=== PATIENT | male | born 2000 | race Caucasian/White ===

== ENCOUNTER 2020-10-29 22:38 | Emergency (ER) | payer OTHER, SELFPAY ==
[2020-10-29 22:39] VITALS: BP 108/79; PULSE 84; RESP 20; TEMP 36.3; O2SAT 99; BMI 22.2
--- NOTE | 2020-10-30 | EDS_ITS ---
HPI History of Present Illness Chief Complaint: Chest Other Narrative Narrative: Patient is a 19-year-old male who states roughly 2 hours ago he was running in a race. He states that he tripped and fell landed in a concrete hole. He states he landed majority with the weight on his chest. He denies striking his head or any loss of consciousness or blood thinner use. He states that he has had pain to the midsternal region that is worse with inspiration since that time. He has concern he may have broken a sternum or even damaged his lungs and therefore comes in for evaluation [facility] Allergy/AdvReac Type Severity Reaction Status Date / Time No Known Allergies Allergy Verified 10/29/20 22:42 Social History Smoking Status: Never smoker ROS ROS ED Constitutional Constitutional ED: Denies chills or fever(s) ENT ENT ED: Denies sore throat Cardiovascular Cardiovascular: Reports chest pain Respiratory/Chest Respiratory/Chest: Denies cough or dyspnea Gastrointestinal Gastrointestinal: Denies abdominal pain, diarrhea, nausea or vomiting Genitourinary Genitourinary ED: Denies dysuria Musculoskeletal Musculoskeletal: Denies myalgias Integumentary Denies rash Neurologic Neurologic: Denies headache(s) Hematologic/Lymphatic Hematologic/Lymphatic: Denies easy bleeding or easy bruising EXAM Physical Exam Const Vital Signs: 10/29/20 22:39 Temperature 97.3 F L Temperature Source Temporal Pulse Rate 84 Respiratory Rate 20 H Blood Pressure 108/79 Blood Pressure Mean 88 Pulse Ox 99 Oxygen Delivery Method Room Air Positive well nourished and well developed General Appearance ED: well developed HEENT Reports moist mucous membranes normocephalic and atraumatic Eyes PERRL and EOMs intact bilaterally Neck supple Chest Wall Chest Narrative: There is no obvious bony deformity or crepitance of the chest wall. There is mild pain palpation over top the anterior chest wall main the sternum. No overlying abrasions or ecchymosis noted Resp normal respiratory effort and clear to auscultation bilaterally Cardio regular rate and regular rhythm GI normal to inspection, nondistended, normoactive bowel sounds, soft to palpation, non-tender and non-distended Auscultation: normoactive bowel sounds Palpation: soft Back/Spine Back/Spine Narrative: No bony deformity or step-off of the thoracic or lumbar spine no midline pain with palpation Extremity normal to inspection Neuro oriented x3 and CN's II-XII intact bilaterally Sensorium / Orientation: awake and alert Psych mental status grossly normal Skin no rashes or lesions noted MDM MDM MDM Narrative Medical decision making narrative: Patient to the ER with a mechanical fall therefore there is no need for cardiac or syncope work-up. He had no signs of trauma to his head or neck so also felt no need for CT scan. As his chest pain is musculoskeletal I did elect to perform a chest x-ray to rule out sternal fracture rib fracture or pneumothorax. Imaging studies revealed no acute finding. Therefore patient is a sternal contusion and is safe for discharge Radiography Diagnostic Testing: Radiology Impression Chest X-Ray 10/30/20 00:00 IMPRESSION: Normal x-ray examination of the chest. Electronically Signed: Roxann Cash MD at 1:19 EDT , Service support , Discharge Plan Triage Chief Complaint: Chest Other ED Provider: Milad House Dx/Rx/DC Orders Clinical Impression: Chest wall contusion Instructions: ED Chest Wall Contusion Referrals: OMAR HANSON [Other] Disposition Disposition: Home, Self Care
--- NOTE | 2020-10-30 | RAD_ITS ---
STUDY: X-RAY CHEST REASON FOR EXAM: Male, 19 years old. injury TECHNIQUE: PA and lateral views of the chest. COMPARISON: None. FINDINGS: The lungs are clear and expanded. There is no demonstrated pleural abnormality. Normal size heart. Normal mediastinum and kusum. Normal visualized pulmonary arteries. Normal visualized aortic arch and descending thoracic aorta. Normal visualized thoracic spine. Normal visualized ribs, clavicles, and shoulders. There is no demonstrated abnormality of the visualized soft tissue structures of the upper abdomen. RAD/Chest PA and Lateral IMPRESSION: Normal x-ray examination of the chest. Electronically Signed: Roxann Cash MD at 1:19 EDT , Service support ,
[2020-10-30 01:44] VITALS: PULSE 73; RESP 16; O2SAT 99
--- NOTE | 2020-10-30 01:45 | ED.RN ---
THIS NURSE REVIEWED D/C INSTRUCTIONS WITH PT. PT VERBALIZED UNDERSTANDING OF INSTRUCTIONS. PT DENIES FURTHER NEEDS OR QUESTIONS AT THIS TIME
== END 2020-10-30 01:45 | disposition home or self-care (01) ==
PROVIDERS: Emergency Provider Emergency Medicine
DX: S20.219A Contusion of unspecified front wall of thorax, initial encounter (principal); W01.0XXA Fall on same level from slipping, tripping and stumbling without subsequent striking against object, initial encounter; Y93.02 Activity, running; Y92.488 Other paved roadways as the place of occurrence of the external cause; Y99.8 Other external cause status
CPT/HCPCS: 71046; 99284

== ENCOUNTER 2024-05-23 16:35 | Emergency (ER) | payer BC, SELFPAY ==
[2024-05-23 16:36] VITALS: BP 125/86; PULSE 72; RESP 15; TEMP 36.6; O2SAT 98; BMI 22.3
--- NOTE | 2024-05-23 16:59 | EX.ED.UPPERE ---
HPI <JEREMIAS Piña - Last Filed: 05/23/24 18:45> History of Present Illness Chief Complaint: Laceration Narrative Narrative: Patient presenting today with a laceration to the left third finger that occurred while he was pole vaulting and the pole broke cutting the dorsal aspect of his left third finger. He is right-handed. His tetanus is up-to-date. He denies any other injury. PFSH <JEREMIAS Piña - Last Filed: 05/23/24 18:45> PFSH Allergy/AdvReac Type Severity Reaction Status Date / Time No Known Allergies Allergy Verified 05/23/24 16:38 Social History Smoking Status: Never smoker ROS <JEREMIAS Piña Last Filed: 05/23/24 18:45> ROS ED Constitutional Constitutional ED: Denies chills or fever(s) Cardiovascular Cardiovascular: Denies chest pain Respiratory/Chest Respiratory/Chest: Denies dyspnea Musculoskeletal Musculoskeletal: Reports arthralgias Integumentary Reports laceration Neurologic Neurologic: Denies paresthesias EXAM <JEREMIAS Piña - Last Filed: 05/23/24 18:45> Physical Exam Const Vital Signs: 05/23/24 16:36 Temperature 97.8 F Temperature Source Temporal Pulse Rate 72 Respiratory Rate 15 Blood Pressure 125/86 H Blood Pressure Mean 99 Pulse Ox 98 Oxygen Delivery Method Room Air Positive well nourished, well developed and no apparent distress General Appearance ED: well developed HEENT Reports normocephalic and head/scalp atraumatic Mouth ED: Yes moist mucous membranes normal Eyes PERRL and EOMs intact bilaterally Neck full ROM and supple Chest Wall inspection of chest normal Resp normal respiratory effort and clear to auscultation bilaterally Cardio regular rate and regular rhythm Back/Spine normal ROM and normal to inspection Extremity normal to inspection and full ROM Extremity Narrative: 1 cm linear full-thickness laceration to the dorsal aspect of the left third PIP joint. Full flexion/ extension at the MCP, PIP, DIP joints of the left hand. Left radial pulse 2+, good cap refill, sensation intact. Neuro oriented x3, CN's II-XII intact bilaterally, moves all extremities, no focal motor deficits and no sensory deficits noted Sensorium / Orientation: awake and alert Psych mental status grossly normal and thought process normal Skin Skin Narrative: Aside from laceration to left third finger no other rashes or lesions noted. [facility] <JEREMIAS Piña - Last Filed: 05/23/24 18:45> [facility] Narrative Medical decision making narrative: Patient presenting today with a laceration to the left third finger that he got today while pole vaulting. While he was up in the air the pole broke and cut his finger. He reports pain to the left third finger, otherwise no other injury. He is neurovascularly intact. No tendon laceration. He has a 1 cm linear laceration to the dorsal aspect of his left third finger at the PIP joint that will require suture repair. X-ray obtained to assess for fracture/foreign body and is negative. He tolerated procedure well. He was placed in a finger splint. Recommended he have sutures removed in 7 day by his PCP. Wound care instructions were discussed, patient discharged home in stable condition. <Garrick Childress MD - Last Filed: 05/23/24 23:47> [facility] Treatment and Re-Evaluation Narrative: Dr. Childress: I have personally performed a face to face assessment of the patient and have reviewed the BOB Note. I performed a substantive portion of the visit including all aspects of the following. My [place] findings include: History is laceration to left middle finger, dorsum, just on her distal to PIP after pulled while taking and vaulting pole broke. No other injury. Exam is GCS 15. ABCs intact. Inspection of dorsum of left hand shows laceration at and just distal to left PIP joint without active bleeding. 1 cm in length. Medical Decision Making: Check x-rays for open fracture. Laceration repair. Splint to prevent wound dehiscence or breaking of sutures. Discharge. Other additions or changes: [None] Procedures <JEREMIAS Piña - Last Filed: 05/23/24 18:45> Lacerations Laceration: Length: 0.39 in Depth: Sub Q Shape: Linear Prep: Chlorhexadine Laceration repair: Digital block, Irrigated, Lidocaine and Wound explored Number of Sutures/Duglas: 2 Suture Information: Ethilon, Horizontal, Mattress and 4-0 Discharge Plan Triage Chief Complaint: Laceration ED Midlevel Provider: hCanda Jackson ED Provider: Garrick Childress Dx/Rx/DC Orders Clinical Impression: Finger laceration Instructions: ED Laceration Extremity Primary Care Provider: Care Physician,No Primary Referrals: OMAR HANSON [Other] Activity Restrictions/Additional Instructions: Follow-up with your PCP to have sutures removed in 7 days. Keep area clean and return for any signs of infection. Print Language: Albanian Disposition Disposition: Home, Self Care Discharge Date/Time: 05/23/24 17:57
--- NOTE | 2024-05-23 17:05 | RAD_ITS ---
PROCEDURE: FINGER(S) MIN 2 VIEWS 05/23/2024 REASON FOR EXAM: LACERATION 3RD FINGER, INJURY TECHNIQUE: 3 view(s) of the left 3rd digit COMPARISON: None FINDINGS: Bones: No acute fracture. Joints: Normal alignment. Soft tissues: Soft tissues are unremarkable. Other: RAD/Finger(s) Min 2 Views IMPRESSION: NO ACUTE FRACTURE OR DISLOCATION. Reading Location: [facility]
[2024-05-23] MEDS: Lidocaine 1% (20 ml mdv) 20 ML Vial 10 ML INFILT (17:42)
== END 2024-05-23 17:57 | disposition home or self-care (01) ==
PROVIDERS: Emergency Provider Emergency Medicine; Visit Provider Emergency Medicine
DX: S61.213A Laceration without foreign body of left middle finger without damage to nail, initial encounter (principal); W26.8XXA Contact with other sharp object(s), not elsewhere classified, initial encounter
CPT/HCPCS: 12001; 73140; 99283

== ENCOUNTER 2024-05-30 13:52 | Emergency (ER) | payer BC, SELFPAY ==
[2024-05-30 13:53] VITALS: BP 112/77; PULSE 61; RESP 14; TEMP 36.1; O2SAT 98; BMI 23.3
--- NOTE | 2024-05-30 14:15 | EDS_ITS ---
HPI History of Present Illness Chief Complaint: Suture Remv Informant: patient Narrative Narrative: 23-year-old male presenting to the emergency room with suture removal. Patient stained a laceration to his dorsum of the left middle finger about 7 days ago when his whole broke doing the pole vault. Patient states the finger has been healing well and he has no concerns. He presents to have the sutures removed PFSH PFSH Allergy/AdvReac Type Severity Reaction Status Date / Time No Known Allergies Allergy Verified 05/23/24 16:38 Social History Smoking Status: Never smoker ROS ROS ED Constitutional Constitutional ED: Denies chills or weight loss Eyes Eyes: Denies change in vision or diplopia ENT ENT ED: Denies ear pain, rhinorrhea or sore throat Cardiovascular Cardiovascular: Denies chest pain, orthopnea, palpitations or racing heartbeat Respiratory/Chest Respiratory/Chest: Denies cough, dyspnea or orthopnea Gastrointestinal Gastrointestinal: Denies abdominal pain, diarrhea, nausea or vomiting Genitourinary Genitourinary ED: Denies dysuria, hematuria or urinary frequency Musculoskeletal Musculoskeletal: Denies arthralgias or myalgias Integumentary Reports other Details: See history of present illness ; Denies abscess or rash Neurologic Neurologic: Denies headache(s) or weakness Psychiatric Psychiatric: Denies anxiety, depression, suicidal ideation or suicidal thoughts Endocrine Endocrinology: Denies polydipsia, polyphagia or polyuria Allergic/Immunologic Allergic/Immunologic ED: Denies mouth swelling, tongue swelling or urticaria EXAM Physical Exam Const Vital Signs: 05/30/24 13:53 Temperature 97 F L Temperature Source Temporal Pulse Rate 61 Respiratory Rate 14 Blood Pressure 112/77 Blood Pressure Mean 88 Pulse Ox 98 Oxygen Delivery Method Room Air Positive well nourished and well developed General Appearance ED: well developed HEENT Reports normocephalic, head/scalp atraumatic and moist mucous membranes Eyes PERRL and EOMs intact bilaterally Neck no lymphadenopathy, supple and no JVD Resp normal respiratory effort and clear to auscultation bilaterally Cardio regular rate, regular rhythm and no murmurs GI normal to inspection, nondistended, normoactive bowel sounds and non-tender Palpation: soft Back/Spine no CVA tenderness and normal ROM Extremity Extremity Narrative: There is a healing laceration over the dorsum of the left third finger PIP joint. I do not see any obvious signs of infection. Wound edges appear well- approximated and healing. General Extremety ED: Negative for edema General Extremity: Negative for edema Neuro oriented x3 and CN's II-XII intact bilaterally Sensorium / Orientation: alert Motor Exam: strength 5/5 throughout Psych mental status grossly normal Mood & Affect: Negative for depressed or tearful Skin no rashes or lesions noted and no wounds MDM MDM MDM Narrative Medical decision making narrative: Differential diagnosis includes but not limited to healing laceration infected sutures cellulitis Sutures were removed x 2. Local wound care discussed with patient. To continue to use some Coban over that joint to help limit range of motion over the next few days. Monitor for changes return for sooner concerns History & Record Review Discussion w/independent historian: Patient Lab Data Attestation: I reviewed the patient's lab results. Discharge Plan Triage Chief Complaint: Suture Remv ED Provider: Panda Hansen Dx/Rx/DC Orders Clinical Impression: Visit for suture removal, Encounter for wound re-check Instructions: Sutr or Stap Removal, ED Wound Check (No Infection) Primary Care Provider: Care Physician,No Primary Referrals: Care Physician,No Primary [Primary Care Provider] - Print Language: Romansh Disposition Disposition: Home, Self Care
== END 2024-05-30 14:23 | disposition home or self-care (01) ==
LOC: ED 14:21
PROVIDERS: Emergency Provider Emergency Medicine; Visit Provider Emergency Medicine
DX: Z48.02 Encounter for removal of sutures (principal)
CPT/HCPCS: 99282